=== PATIENT | female | born 1975 | race Caucasian/White ===

== ENCOUNTER 2017-03-24 01:56 | Emergency (ER) | payer BC, OTHER ==
[~2017-03-24] VITALS: Ht 180.3 cm; Wt 104.3 kg
--- NOTE | ~2017-03-24 | EKG ---
[place] [address] [address] [facility] [place] [address] ELECTROCARDIOGRAM REPORT Name: TICO PATTEN Room #: DEP [facility]#: [id number] Admission: 03/24/17 Attend Phys: Discharge: 03/24/17 Date of : 77 Report #: [id number] THIS REPORT FOR: //name// [facility] ED Test Date: 2017-03-24 Test Time: 02:07:55 Pat Name: TICO PATTEN Department: Room: Gender: F Manager Golf: MOY : 1975 Requested By: Ruma Sullivan Order Number: [id number] MD: Lito Call Measurements Intervals [place] Rate: 68 P: -9 WY: 143 QRS: 30 QRSD: 93 T: 28 QT: 410 QTc: 437 Interpretive Statements Sinus rhythm No significant abnormality No previous ECG available for comparison Electronically Signed On 03-24-2017 8:36:29 CDT by Lito Call [email or web address] <ELECTRONICALLY SIGNED> By: Lito Call MD, [facility] 03/24/17 [id number] Lito Call MD, FACC /EPI
[2017-03-24] MEDS ORDERED: ZYRTEC10 M5 PO (02:19)
[2017-03-24 03:37] LABS: ANION GAP 10 mmol/L (7-16); BUN 15 mg/dL (7-18); CALCIUM 8.2 mg/dL (8.5-10.1); CHLORIDE 104 mmol/L (98-107); CO2 24 mmol/L (21-32); CREATININE 0.7 mg/dL (0.6-1.0); GLUCOSE 84 mg/dL (74-106); SODIUM 138 mmol/L (136-145)
[2017-03-24 03:40] LABS: HEMATOCRIT 33.3 % (37.0-47.0); HEMOGLOBIN 11.3 gm/dL (12.0-15.0); MCH 31.6 pg (26.0-34.0); MCV 92.8 fL (80.0-100.0); PLATELET COUNT 259 thou/uL (150-400); RBC 3.59 mil/uL (4.20-5.00); RDW 12.5 % (10.5-14.5); WBC 6.5 thou/uL (4.0-11.0)
[2017-03-24 03:41] LABS: MANUAL DIFF YES
[2017-03-24 03:45] LABS: TROPONIN-I < 0.04 ng/mL (<0.04-0.07)
[2017-03-24 04:13] LABS: ANISOCYTOSIS SLIGHT; TOTAL CELL COUNT 100
[2017-03-24 04:18] LABS: ABSOLUTE NEUTROPHILS 2.3 thou/uL (1.4-8.2)
[2017-03-24 04:39] VITALS: BP 128/72
== END 2017-03-24 04:52 | disposition home or self-care (01) ==
LOC: ER 01:56
PROVIDERS: Emergency Medicine
DX: M54.12 Radiculopathy, cervical region (principal)